=== PATIENT | female | born 1950 | race Caucasian/White ===

== ENCOUNTER 2017-10-02 12:28 | Emergency (ER) | payer MEDICARE, MEDICAID ==
[~2017-10-02] VITALS: Ht 165.1 cm; Wt 104.3 kg
[2017-10-02 23:17] LABS: Basophils # (auto) 0.2 uL; Basophils % (auto) 1.8 % (0.0-2.0); Eosinophils # (auto) 0.1 uL; Eosinophils % (auto) 1.5 % (0.0-7.0); Hematocrit 41.5 % (36.0-46.0); Hemoglobin 14.3 g/dL (12.2-16.2); Lymphocytes # (auto) 2.6 uL; Lymphocytes % (auto) 28.4 % (10.0-50.0); Mean Corpuscular Hemoglobin 29.8 pg (28.0-32.0); Mean Corpuscular Hgb Conc. 34.5 g/dL (32.0-36.0); Mean Corpuscular Volume 86.6 fL (80.0-100.0); Monocytes # (auto) 0.4 uL; Monocytes % (auto) 4.8 % (0.0-12.0); Neutrophils # (auto) 5.8 uL; Neutrophils % (auto) 63.5 % (37.0-80.0); Nucleated Red Blood Cells % 0.1 %; Platelet Count (auto) 225 10^3/uL (140-450); Red Cell Distribution Width 13.1 % (11.8-14.3); White Blood Cell 9.1 10^3/uL (4.4-10.8)
[2017-10-02 23:37] LABS: Albumin 4.1 g/dL (3.4-5.0); BUN/Creatinine Ratio 19.2; Bilirubin, Total 0.9 mg/dL (0.2-1.0); Calcium 10.3 mg/dL (8.5-10.1); Potassium 3.6 mmol/L (3.5-5.1); Total Protein 8.1 g/dL (6.4-8.2)
[2017-10-03 00:10] VITALS: BP 197/84
[2017-10-04] MEDS ORDERED: LISI-646 PO (17:20)
[2017-10-04] MEDS ORDERED: METO25TA62 PO (17:20)
[2017-10-04] MEDS ORDERED: CLOP75TA41 PO (17:20)
[2017-10-04] MEDS ORDERED: ASPI81CH43 PO (17:20)
[2017-10-04] MEDS ORDERED: PRAV20TA3 PO (17:27)
== END 2017-10-03 00:07 | disposition home or self-care (01) ==
LOC: ER 12:28
DX: K80.20 Calculus of gallbladder without cholecystitis without obstruction (principal); K59.00 Constipation, unspecified; N39.0 Urinary tract infection, site not specified; M54.9 Dorsalgia, unspecified; I10 Essential (primary) hypertension; M10.9 Gout, unspecified
CPT/HCPCS: 36415; 74176; 76705; 80053; 85025; 93005

== ENCOUNTER 2017-10-03 19:15 | Inpatient (IN) | payer MEDICARE, MEDICAID ==
[~2017-10-03] VITALS: Ht 165.1 cm; Wt 103.5 kg
[2017-10-03 20:58] LABS: Basophils # (auto) 0 uL; Basophils % (auto) 0.4 % (0.0-2.0); Eosinophils # (auto) 0.2 uL; Eosinophils % (auto) 1.3 % (0.0-7.0); Hematocrit 42.2 % (36.0-46.0); Hemoglobin 13.9 g/dL (12.2-16.2); Lymphocytes # (auto) 1.6 uL; Lymphocytes % (auto) 12.6 % (10.0-50.0); Mean Corpuscular Hemoglobin 28.9 pg (28.0-32.0); Mean Corpuscular Volume 87.5 fL (80.0-100.0); Monocytes # (auto) 0.6 uL; Monocytes % (auto) 4.9 % (0.0-12.0); Neutrophils # (auto) 10.1 uL; Neutrophils % (auto) 80.8 % (37.0-80.0); Nucleated Red Blood Cells % 0.1 %; Platelet Count (auto) 222 10^3/uL (140-450); Red Blood Cells 4.82 10^6/uL (4.0-5.20); White Blood Cell 12.5 10^3/uL (4.4-10.8)
[2017-10-03 21:04] LABS: Urine Bacteria NONE SEEN /hpf (None Seen); Urine Blood 2+ /uL (Negative); Urine Specific Gravity 1.019 (1.001-1.035); Urine WBC 251 /hpf (0 - 5)
[2017-10-03 21:12] LABS: Albumin 3.9 g/dL (3.4-5.0); Bilirubin, Total 0.5 mg/dL (0.2-1.0); Calcium 10.1 mg/dL (8.5-10.1); Total Protein 7.7 g/dL (6.4-8.2)
[2017-10-04] MEDS ORDERED: cefTRIAXone 1GM/10ml IVPUSH 10 ML IV ONE (01:00)
[2017-10-04] MEDS ORDERED: SODIUM CHLORIDE 0.9% 1,000 ML IV ONE ×2 (01:00→02:45)
[2017-10-04] MEDS ORDERED: MORPHINE SULFATE 4 MG/ML SYR/VIAL IV ONE ×2 (01:00→03:00)
[2017-10-04] MEDS ORDERED: ONDANSETRON HCL 4 MG/2 ML VIAL IV ONE (01:00)
[2017-10-04] MEDS ORDERED: metroNIDAZOLE 500MG/100ML 100 ML IV ONE (01:15)
[2017-10-04] MEDS ORDERED: MAGNESIUM CITRATE SOLUTION 300 ML BTL PO ONE (03:15)
[2017-10-04] MEDS: SODIUM CHLORIDE 0.9% 1,000 ML IV SCH ×2 (04:45→18:22)
[2017-10-04] MEDS ORDERED: TEMAZEPAM 15 MG CAP PO PRN (04:45)
[2017-10-04] MEDS ORDERED: PANTOPRAZOLE 40 MG/10 ML VIAL IV ONE (04:45)
[2017-10-04] MEDS ORDERED: ACETAMINOPHEN 325 MG TAB PO PRN (04:45)
[2017-10-04] MEDS ORDERED: metroNIDAZOLE 500MG/100ML 100 ML IV SCH (06:00)
[2017-10-04] MEDS: MORPHINE SULFATE 4 MG/ML SYR/VIAL IV PRN ×2 (08:07→21:23)
[2017-10-04] MEDS: ONDANSETRON HCL 4 MG/2 ML VIAL IV PRN ×3 (08:07→21:23)
[2017-10-04] MEDS: metroNIDAZOLE 500MG/100ML 100 ML IV SCH ×2 (09:23→17:17)
[2017-10-04 09:59] LABS: INR 0.94 (0.9-1.15); Prothrombin Time 10.2 sec (9.37-12.3)
[2017-10-04] MEDS ORDERED: ENOXAPARIN SOD 30 MG/0.3 ML SYRINGE SC SCH (10:00)
[2017-10-04] MEDS ORDERED: MORPHINE SULFATE 4 MG/ML SYR/VIAL ONE (11:11)
[2017-10-04] MEDS: CLOPIDOGREL BISULFATE 75 MG TAB PO SCH (11:56)
[2017-10-04] MEDS: METOPROLOL SUCCINATE XL 50 MG TAB PO SCH (11:57)
[2017-10-04] MEDS: ENOXAPARIN SOD 40 MG/0.4 ML SYRINGE SC SCH (11:57)
[2017-10-04] MEDS: LISINOPRIL 5 MG TAB PO SCH (11:57)
[2017-10-04] MEDS: PANTOPRAZOLE 40 MG/10 ML VIAL IV SCH (12:05)
[2017-10-04 17:00] VITALS: BP 104/59
[2017-10-04] MEDS ORDERED: CLOP75TA41 PO (17:20)
[2017-10-04] MEDS ORDERED: ASPI81CH43 PO (17:20)
[2017-10-04] MEDS ORDERED: METO25TA62 PO (17:20)
[2017-10-04] MEDS ORDERED: LISI-646 PO (17:20)
[2017-10-04] MEDS ORDERED: PRAV20TA3 PO (17:27)
[2017-10-04 20:00] VITALS: BP 109/60
[2017-10-04] MEDS: PRAVASTATIN SODIUM 20 MG TAB PO SCH (21:22)
[2017-10-04] MEDS: cefTRIAXone 1GM/10ml IVPUSH 10 ML IV SCH (21:24)
[2017-10-04 22:00] VITALS: BP 117/65
[2017-10-05] VITALS (7 sets, daily range): BP systolic 109–148; BP diastolic 53–71
[2017-10-05] MEDS: metroNIDAZOLE 500MG/100ML 100 ML IV SCH ×3 (01:14→17:01)
[2017-10-05] MEDS: SODIUM CHLORIDE 0.9% 1,000 ML IV SCH ×2 (07:30→10:00)
[2017-10-05] MEDS: CLOPIDOGREL BISULFATE 75 MG TAB PO SCH (09:57)
[2017-10-05] MEDS: METOPROLOL SUCCINATE XL 50 MG TAB PO SCH (09:58)
[2017-10-05] MEDS: LISINOPRIL 5 MG TAB PO SCH (09:58)
[2017-10-05] MEDS: PANTOPRAZOLE 40 MG/10 ML VIAL IV SCH (09:59)
[2017-10-05] MEDS: ENOXAPARIN SOD 40 MG/0.4 ML SYRINGE SC SCH (09:59)
[2017-10-05] MEDS: cefTRIAXone 1GM/10ml IVPUSH 10 ML IV SCH (22:36)
[2017-10-05] MEDS: HYDROcodone-ACET 5/325MG TAB PO PRN (22:37)
[2017-10-05] MEDS: PRAVASTATIN SODIUM 20 MG TAB PO SCH (22:37)
[2017-10-06] MEDS: metroNIDAZOLE 500MG/100ML 100 ML IV SCH ×2 (01:11→09:30)
[2017-10-06] MEDS: HYDROcodone-ACET 5/325MG TAB PO PRN (03:45)
[2017-10-06] MEDS: LISINOPRIL 5 MG TAB PO SCH (04:54)
[2017-10-06 05:00] VITALS: BP 168/95
[2017-10-06 06:13] VITALS: BP 113/61
[2017-10-06 06:47] LABS: Basophils # (auto) 0 uL; Basophils % (auto) 0.3 % (0.0-2.0); Eosinophils # (auto) 0.2 uL; Hematocrit 33.9 % (36.0-46.0); Hemoglobin 11.6 g/dL (12.2-16.2); Lymphocytes # (auto) 2.2 uL; Lymphocytes % (auto) 28.3 % (10.0-50.0); Mean Corpuscular Hemoglobin 29.8 pg (28.0-32.0); Mean Corpuscular Hgb Conc. 34.1 g/dL (32.0-36.0); Mean Corpuscular Volume 87.3 fL (80.0-100.0); Monocytes # (auto) 0.6 uL; Neutrophils # (auto) 4.8 uL; Neutrophils % (auto) 61.4 % (37.0-80.0); Nucleated Red Blood Cells % 0.1 %; Platelet Count (auto) 167 10^3/uL (140-450); Red Blood Cells 3.88 10^6/uL (4.0-5.20); White Blood Cell 7.8 10^3/uL (4.4-10.8)
[2017-10-06 07:06] LABS: Calcium 9.5 mg/dL (8.5-10.1); Potassium 3.6 mmol/L (3.5-5.1)
[2017-10-06 09:00] VITALS: BP 153/80
[2017-10-06] MEDS: PANTOPRAZOLE 40 MG/10 ML VIAL IV SCH (09:29)
[2017-10-06] MEDS: CLOPIDOGREL BISULFATE 75 MG TAB PO SCH (09:29)
[2017-10-06] MEDS: ENOXAPARIN SOD 40 MG/0.4 ML SYRINGE SC SCH (09:29)
[2017-10-06] MEDS: METOPROLOL SUCCINATE XL 50 MG TAB PO SCH (09:30)
[2017-10-06] MEDS: SODIUM CHLORIDE 0.9% 1,000 ML IV SCH (09:33)
[2017-10-06 13:00] VITALS: BP 141/66
[2017-10-06] MEDS ORDERED: LOPERAMIDE HCL 2 MG CAP PO ONE (13:15)
== END 2017-10-06 15:38 | disposition home or self-care (01) | DRG 872 ==
LOC: ER 19:21 → OVERFLOW 19:22 → WEST WING 10-04 15:16
PROVIDERS: ADMIT Nurse Practitioner; ATTEND Internal Medicine Pulmonary Disease
DX: A41.9 Sepsis, unspecified organism (principal); E66.01 Morbid (severe) obesity due to excess calories; N39.0 Urinary tract infection, site not specified; N28.1 Cyst of kidney, acquired; K80.20 Calculus of gallbladder without cholecystitis without obstruction; I10 Essential (primary) hypertension; I70.0 Atherosclerosis of aorta; R31.9 Hematuria, unspecified; K44.9 Diaphragmatic hernia without obstruction or gangrene; K57.30 Diverticulosis of large intestine without perforation or abscess without bleeding; M10.9 Gout, unspecified; K59.00 Constipation, unspecified; K82.8 Other specified diseases of gallbladder; I25.2 Old myocardial infarction; Z90.5 Acquired absence of kidney; Z95.5 Presence of coronary angioplasty implant and graft; Z79.899 Other long term (current) drug therapy; Z87.442 Personal history of urinary calculi; Z82.49 Family history of ischemic heart disease and other diseases of the circulatory system; Z68.38 Body mass index [BMI] 38.0-38.9, adult
CPT/HCPCS: 36415; 74176; 76705; 78226; 80048; 80053; 81001; 83690; 85025; 85610; 85730; 86850; 86900; 86901; 87493; 93005; 96361; 96365; 96375; C9113; J2405; J3490